=== PATIENT | male | born 1935 | race Caucasian/White ===

== ENCOUNTER 2020-08-23 10:37 | Outpatient (REF) | payer MEDICARE, SELFPAY ==
[2020-08-23 13:52] LABS: MANUAL DIFF FLAG NO
[2020-08-23 13:59] LABS: Basophils Absolute Auto 0.1 X10*3/uL (0.0-0.2); Basophils Percent Auto 1.3 % (0-2); Eosinophils Absolute Auto 0.1 X10*3/uL (0.0-0.4); Eosinophils Percent Auto 1.2 % (0-4); Hematocrit 52.4 % (42-52); Hemoglobin 16.4 g/dl (14.0-18.0); Imm Gran Abs Auto 0.07 X10*3/uL (0.00-0.03); Imm Gran Pct Auto 0.9 % (0.0-0.4); Lymphocytes Absolute Auto 0.8 X10*3/uL (1.2-4.9); Lymphocytes Percent Auto 10.7 % (20-40); Mean Corpuscular HGB Conc 31.3 g/dl (31.0-36.0); Mean Corpuscular Hemoglobin 27.3 pg (27.0-33.0); Mean Corpuscular Volume 87.2 fL (80-98); Mean Platelet Volume 10.6 fL (9.4-12.4); Monocytes Absolute Auto 0.4 X10*3/uL (0.1-1.2); Neutrophils Absolute Auto 6.3 X10*3/uL (2.0-8.3); Neutrophils Percent Auto 80.9 % (45-73); Platelet Count 202 X10*3/uL (160-400); Red Blood Count 6.01 X10*6/uL (4.60-5.80); Red Cell Distribution Width 14.9 % (11.0-16.0); White Blood Count 7.8 X10*3/uL (4.8-10.8)
[2020-08-23 14:52] LABS: Alanine Aminotransferase 14 U/L (0-40); Albumin Level 4.3 g/dL (3.5-5.0); Alkaline Phosphatase 84 U/L (39-117); Anion Gap 14 (12-20); Aspartate Amino Transferase 10 U/L (5-37); Bilirubin Total 0.6 mg/dL (0.0-1.0); Blood Urea Nitrogen 15 mg/dL (9-16); Calcium 8.8 mg/dL (8.4-10.2); Carbon Dioxide 24 mmol/L (22-29); Chloride 109 mmol/L (96-108); Cholesterol 139 mg/dL; Estimated Glomerular Filt Rate 58; Glucose Fasting 101 mg/dL (60-99); HDL Cholesterol 34 mg/dL; LDL Cholesterol Calculated 74 mg/dl; Sodium 143 mmol/L (135-145); Total Protein 7.1 g/dL (6.5-8.0); Triglycerides 155 mg/dL
== END 2020-08-23 10:38 | disposition home or self-care (01) ==
LOC: HO.HMGCLDS 10:37
PROVIDERS: PCP Internal Medicine; Visit Provider Internal Medicine
DX: I10 Essential (primary) hypertension (principal); N40.0 Benign prostatic hyperplasia without lower urinary tract symptoms
CPT/HCPCS: 36415; 80053; 80061; 85025

== ENCOUNTER 2020-11-07 13:49 | Outpatient (REF) | payer MEDICARE, SELFPAY ==
[2020-11-07 17:41] LABS: Prostate Specific Antigen 10.32 ng/mL (<0.05-4.0)
== END 2020-11-07 13:50 | disposition home or self-care (01) ==
LOC: HO.HMGCLDS 13:49
PROVIDERS: PCP Internal Medicine; Visit Provider Urology
DX: R97.20 Elevated prostate specific antigen [PSA] (principal); Z12.5 Encounter for screening for malignant neoplasm of prostate
CPT/HCPCS: 36415; 84153

== ENCOUNTER 2021-05-03 13:10 | Outpatient (REF) | payer MEDICARE, SELFPAY ==
[2021-05-03 14:48] LABS: Prostate Specific Antigen 9.28 ng/mL (<0.05-4.0)
== END 2021-05-03 13:11 | disposition home or self-care (01) ==
LOC: HO.HMGCLDS 13:10
PROVIDERS: PCP Internal Medicine; Visit Provider Urology
DX: Z12.5 Encounter for screening for malignant neoplasm of prostate (principal); R97.20 Elevated prostate specific antigen [PSA]
CPT/HCPCS: 36415; 84153

== ENCOUNTER 2021-08-28 13:00 | Outpatient (REF) | payer MEDICARE, SELFPAY ==
[2021-08-28 13:54] LABS: MANUAL DIFF FLAG NO
[2021-08-28 13:56] LABS: Basophils Absolute Auto 0.1 X10*3/uL (0.0-0.2); Eosinophils Absolute Auto 0.1 X10*3/uL (0.0-0.4); Eosinophils Percent Auto 1.4 % (0-4); Hematocrit 49.9 % (42.0-52.0); Hemoglobin 15.7 g/dl (14.0-18.0); Imm Gran Pct Auto 1.2 % (0.0-0.4); Lymphocytes Absolute Auto 0.9 X10*3/uL (1.2-4.9); Mean Corpuscular HGB Conc 31.5 g/dl (31.0-36.0); Mean Corpuscular Hemoglobin 27.4 pg (27.0-33.0); Mean Corpuscular Volume 86.9 fL (80.0-98.0); Monocytes Absolute Auto 0.5 X10*3/uL (0.1-1.2); Monocytes Percent Auto 5.5 % (2-11); Neutrophils Absolute Auto 6.7 x10*3/uL (2.0-8.3); Neutrophils Percent Auto 79.9 % (45-73); Platelet Count 194 X10*3/uL (160-400); Red Blood Count 5.74 X10*6/uL (4.60-5.80); Red Cell Distribution Width 15.5 % (11.0-16.0); White Blood Count 8.4 X10*3/uL (4.8-10.8)
[2021-08-28 14:12] LABS: Alanine Aminotransferase 14 U/L (0-40); Albumin Level 4.1 g/dL (3.5-5.0); Alkaline Phosphatase 73 U/L (39-117); Anion Gap 11 (12-20); Aspartate Amino Transferase 12 U/L (5-37); Bilirubin Total 0.7 mg/dL (0.0-1.0); Blood Urea Nitrogen 14 mg/dL (9-16); Calcium 9.1 mg/dL (8.4-10.2); Carbon Dioxide 26 mmol/L (22-29); Chloride 108 mmol/L (96-108); Cholesterol 128 mg/dL; Estimated Glomerular Filt Rate 53; Glucose Random 104 mg/dL (60-115); Potassium 5.2 mmol/L (3.3-5.1); Sodium 140 mmol/L (135-145); Total Protein 7.1 g/dL (6.5-8.0)
== END 2021-08-28 13:01 | disposition home or self-care (01) ==
LOC: HO.HMGCLDS 13:00
PROVIDERS: PCP Internal Medicine; Visit Provider Internal Medicine
DX: N40.0 Benign prostatic hyperplasia without lower urinary tract symptoms (principal); I10 Essential (primary) hypertension; Z72.0 Tobacco use
CPT/HCPCS: 36415; 80053; 82465; 85025

== ENCOUNTER 2021-10-26 14:06 | Outpatient (REF) | payer MEDICARE, SELFPAY ==
--- NOTE | ~2021-10-26 | US_ITS ---
EXAMINATION: US EXTRACRANIAL CAROTID DUPLEX, BILATERAL CLINICAL INFORMATION: Left neck throbbing. COMPARISON: None TECHNIQUE: Real-time ultrasound and Doppler techniques (integrating B-mode 2-D vascular images, Doppler spectral analysis and color-flow Doppler imaging) were utilized to interrogate the extracranial carotid arteries, the vertebral arteries and proximal subclavian arteries bilaterally. The degree of stenosis is determined by criteria similar to NASCET. FINDINGS: RIGHT SIDE: 1. There is soft atherosclerotic plaque seen in the bifurcation/proximal ICA region. 2. The common carotid artery PSV proximally is 145 cm/s and distally 118 cm/s. 3. The proximal internal carotid artery velocities are 150 cm/s systolic and 11.8 cm/s diastolic. 4. The proximal external carotid artery PSV is 177 cm/s. 5. The vertebral artery shows antegrade flow. 6. The subclavian artery waveforms are normal. LEFT SIDE: 1. There is soft atherosclerotic plaque seen in the bifurcation/proximal ICA region. 2. The common carotid artery PSV proximally is 136 cm/s and distally 119 cm/s. 3. The proximal internal carotid artery velocities are 104 cm/s systolic and 15.7 cm/s diastolic. 4. The proximal external carotid artery PSV is 136 cm/s. 5. The vertebral artery shows 63.3 flow. 6. The subclavian artery waveforms are normal. US/US carotid duplex BI IMPRESSION: 1. Right: 50-79% range stenosis. 2. Left: 0-49% range stenosis. 3. Normal antegrade flow seen in both vertebral arteries.
== END 2021-10-26 14:07 | disposition home or self-care (01) ==
LOC: HO.HMGCX 14:06
PROVIDERS: Visit Provider Internal Medicine
DX: R22.1 Localized swelling, mass and lump, neck (principal)
CPT/HCPCS: 93880

== ENCOUNTER → 2021-12-21 11:08 | Outpatient (BNVA) | payer MEDICARE, SELFPAY | PROVIDERS: PCP Internal Medicine; Visit Provider Surgery Vascular Surgery | DX: I65.23 Occlusion and stenosis of bilateral carotid arteries (principal) | CPT/HCPCS: 99202 ==

== ENCOUNTER 2022-01-24 08:01 | Outpatient (REF) | payer MEDICARE, SELFPAY ==
--- NOTE | ~2022-01-24 | XR_ITS ---
EXAMINATION: XR FOOT, RIGHT CLINICAL INFORMATION: Right foot pain. Rule out heel spur. COMPARISON: None TECHNIQUE: AP, lateral, and oblique views of the right foot. FINDINGS: Bone alignment is normal. No fracture or dislocation is seen. Joint spaces are normal. There is a small plantar calcaneal spur. There is mild soft tissue arterial calcification. XR/XR foot RT min 3V IMPRESSION: Small plantar calcaneal spur.
== END 2022-01-24 08:02 | disposition home or self-care (01) ==
LOC: HO.HMGCX 08:01
PROVIDERS: PCP Internal Medicine; Visit Provider Internal Medicine
DX: M79.671 Pain in right foot (principal)
CPT/HCPCS: 73630

== ENCOUNTER 2022-02-16 09:00 | Outpatient (RCR) | payer MEDICARE, SELFPAY ==
--- NOTE | 2022-01-17 09:54 | MHC.PT.EP ---
[facility] [place] Office [place] Office [place] Office [address] [phone] F: [phone] F: [phone] F: [phone] F: [phone] Physical Therapy Plan of Care Date of Evaluation: Date of Surgery: none Diagnosis: low back pain Assessment: Patient is a 86 year old R handed male who presents with s/s consistent with low back pain. He does not work and is but stays busy around the house and yard. Patient past medical history includes HTN. Current impairments include pain, posture, ROM, strength, activity tolerance and functional mobility. Functional limitations include decreased ability to walk, transfer, lift, carry, push and pull. Patient is motivated with good rehab potential. Skilled PT will address impairments and functional limitations in order to achieve goals. Frequency and Duration: The patient will be seen 2x/week for 4 weeks Short Term Goals: I with HEP - 2weeks HS 90/90 lacking 25 or less - 2 weeks Property Controller Goals: Able to walk 20 minutes without increased pain - 4 weeks Reduced morning pain to 2/10 max - 4 weeks rotation to 75% b/l - 4 weeks Treatment Plan: Modalities to reduce pain, spasms and effusion. Manual therapy to restore motion and function. Therapeutic exercise to improve strength and flexibility. Neuromuscular re-education for posture and balance. Therapeutic activities to return to functional activities of daily living. Electronically signed by: Jw Betancourt PT Please sign and return to therapist. Thank you for your referral.
== END 2022-04-25 10:46 | disposition home or self-care (01) ==
LOC: HO.PTCHIC 09:00
PROVIDERS: PCP Internal Medicine; Visit Provider Internal Medicine
DX: M54.50 Low back pain, unspecified (principal)
CPT/HCPCS: 97110; 97162

== ENCOUNTER 2022-02-16 09:54 | Outpatient (REF) | payer MEDICARE, SELFPAY | END 2022-02-16 09:55 | disposition home or self-care (01) | LOC: HO.HMGCLDS 09:54 | PROVIDERS: PCP Internal Medicine; Visit Provider Physician Assistant | DX: Z12.5 Encounter for screening for malignant neoplasm of prostate (principal); R97.20 Elevated prostate specific antigen [PSA] | CPT/HCPCS: 36415; 84153 ==

== ENCOUNTER 2022-05-24 11:55 | Outpatient (REF) | payer MEDICARE, SELFPAY ==
[2022-05-24 12:50] LABS: Influenza A PCR POSITIVE (Negative); Influenza B PCR NEGATIVE (Negative); Resp Syncy Virus RNA Qual PCR NEGATIVE (Negative); SARS COV2 PCR INHOUSE NEGATIVE (Negative)
== END 2022-05-24 11:56 | disposition home or self-care (01) ==
LOC: HO.LNP 11:55
PROVIDERS: Visit Provider Internal Medicine
DX: Z20.822 Contact with and (suspected) exposure to COVID-19 (principal); R05.9 Cough, unspecified; R50.9 Fever, unspecified
CPT/HCPCS: 0241U

== ENCOUNTER 2022-08-03 09:37 | Outpatient (REF) | payer MEDICARE, SELFPAY ==
[2022-08-03 11:43] LABS: MANUAL DIFF FLAG NO
[2022-08-03 12:01] LABS: Basophils Absolute Auto 0.2 X10*3/uL (0.0-0.2); Basophils Percent Auto 1.7 % (0-2); Eosinophils Absolute Auto 0.2 X10*3/uL (0.0-0.4); Eosinophils Percent Auto 1.8 % (0-4); Hematocrit 49.3 % (42.0-52.0); Hemoglobin 15.6 g/dl (14.0-18.0); Imm Gran Abs Auto 0.14 X10*3/uL (0.00-0.03); Imm Gran Pct Auto 1.6 % (0.0-0.4); Lymphocytes Absolute Auto 0.8 X10*3/uL (1.2-4.9); Lymphocytes Percent Auto 9.4 % (20-40); Mean Corpuscular HGB Conc 31.6 g/dl (31.0-36.0); Mean Corpuscular Hemoglobin 27.2 pg (27.0-33.0); Mean Corpuscular Volume 85.9 fL (80.0-98.0); Mean Platelet Volume 10.3 fL (9.4-12.4); Monocytes Absolute Auto 0.4 X10*3/uL (0.1-1.2); Monocytes Percent Auto 4.4 % (2-11); Neutrophils Absolute Auto 7.2 x10*3/uL (2.0-8.3); Neutrophils Percent Auto 81.1 % (45-73); Platelet Count 241 X10*3/uL (160-400); Red Blood Count 5.74 X10*6/uL (4.60-5.80); Red Cell Distribution Width 16.1 % (11.0-16.0); White Blood Count 8.8 X10*3/uL (4.8-10.8)
[2022-08-03 12:32] LABS: Alanine Aminotransferase 12 U/L (0-40); Albumin Level 3.9 g/dL (3.5-5.0); Alkaline Phosphatase 69 U/L (39-117); Anion Gap 13 (12-20); Aspartate Amino Transferase 12 U/L (5-37); Blood Urea Nitrogen 20 mg/dL (9-16); Calcium 8.9 mg/dL (8.4-10.2); Carbon Dioxide 24 mmol/L (22-29); Chloride 109 mmol/L (96-108); Cholesterol 129 mg/dL; Estimated Glomerular Filt Rate 59; Glucose Fasting 112 mg/dL (60-99); HDL Cholesterol 29 mg/dL; LDL Cholesterol Calculated 70 mg/dl; Potassium 4.3 mmol/L (3.3-5.1); Sodium 142 mmol/L (135-145); Total Protein 6.5 g/dL (6.5-8.0); Triglycerides 151 mg/dL
== END 2022-08-03 09:38 | disposition home or self-care (01) ==
LOC: HO.HMGCLDS 09:37
PROVIDERS: PCP Internal Medicine; Visit Provider Internal Medicine
DX: Z00.00 Encounter for general adult medical examination without abnormal findings (principal); Z12.5 Encounter for screening for malignant neoplasm of prostate
CPT/HCPCS: 36415; 80053; 80061; 84153; 85025

== ENCOUNTER → 2022-10-02 11:05 | Outpatient (BNVA) | payer MEDICARE, SELFPAY | PROVIDERS: PCP Internal Medicine; Visit Provider Surgery | DX: K40.90 Unilateral inguinal hernia, without obstruction or gangrene, not specified as recurrent (principal) | CPT/HCPCS: 99202 ==

== ENCOUNTER 2022-10-24 07:23 | Day surgery (SDC) | payer MEDICARE, SELFPAY ==
[2022-10-19 14:38] VITALS: BMI 24.6
[2022-10-24] VITALS (7 sets, daily range): BP systolic 125–167; BP diastolic 65–90; PULSE 74–92; RESP 16–20; TEMP 36.2–36.4; O2SAT 93–100; BMI 24.3
--- NOTE | 2022-10-24 08:25 | MHC.SHP ---
Pre-Procedural Eval Section A Date of Service: 10/24/22 The patient is an INPATIENT: No Changes since office visit: Yes Patient answered all questions; No Cold of Flu in the past 2 weeks, No New Medical Problems and No Changes in Medication The History & Physical has been completed within 30 days and I have reviewed it.: Yes Section B Chief Complaint: Unilateral inguinal hernia, without obstruction Allergies: Allergies Allergy/AdvReac Type Severity Reaction Status Date / Time No Known Allergies Allergy Verified 10/24/22 07:52 Plan Diagnosis/Plan: Unchanged I have reviewed the history and physical and performed a pertinent physical examination on my patient. No changes have occurred unless specified. Time Spent With Patient Time: Total time managing care of this patient today ____ minutes.
[2022-10-24] MEDS: Lactated Ringers 1,000 ML 100 ML IVCONT (08:33)
--- NOTE | 2022-10-24 08:40 | P.CONAN_ITS ---
Documented by User: Cristiane Cummings NP 10/23/22 10:46 HPI - Anesthesia Eval Consult details Narrative: 87yo M for Left Hernia Repair Inguinal with mesh Follows vascular for carotid stenosis. Last seen 12/2021 with f/u in 1 year. [facility] Active Problems Active Problems: All Active Problems (Updated 10/19/22 @ 14:40 by Luisa Costello RN) Bilateral carotid artery stenosis (Acute) Reducible left inguinal hernia (Acute) Past Medical History Medical History Bilateral carotid artery stenosis COPD (chronic obstructive pulmonary disease) Hypertension Family History Family History Sister Ovarian cancer Surgical History Surgical History H/O colonoscopy History of cataract surgery Hx of prostate biopsy Social History Social History Alcohol intake: never Patient Tobacco Use Status: Former Tobacco user Quit Date: 2002 Tobacco use type: Cigarette Smoked in Last 30 Days: No Use of substances other than those prescribed or required for medical reasons: No Are you DNR?: No Advance Directives: No Advance Directives Information Provided: Yes Meds Allergies Allergy/AdvReac Type Severity Reaction Status Date / Time No Known Allergies Allergy Verified 10/24/22 07:52 Home Medications Medication Instructions Recorded Confirmed Last Taken Type cholecalciferol (vitamin D3) 250 250 mcg PO DAILY 12/21/21 10/24/22 Unknown History mcg (10,000 unit) capsule lisinopril 5 mg tablet 5 mg PO DAILY 12/21/21 10/24/22 10/23/22 History aspirin 1 tab PO USEASDIRECTD 10/24/22 10/24/22 10/22/22 History budesonide-formoterol HFA 80 inhalation 10/24/22 Unknown History mcg-4.5 mcg/actuation aerosol inhaler (Symbicort) Exam Exam Date and Time: October 23, 2022 1036 Height,Weight and Vital Signs: Height 5 ft 8 in Weight 73.482 kg Pertinent Lab Results Pertinent Lab Results: Laboratory Tests 08/03/22 08/03/22 09:43 09:43 WBC 8.8 Hgb 15.6 Hct 49.3 Plt Count 241 Sodium 142 Potassium 4.3 Chloride 109 H Carbon Dioxide 24 BUN 20 H Creatinine 1.18 Narrative Narrative: US carotid duplex BI 2021 IMPRESSION: 1. Right: 50-79% range stenosis. ? 2. Left: 0-49% range stenosis. ? 3. Normal antegrade flow seen in both vertebral arteries. Assessment and Plan Assessment Anesthesia Assessment: Chart Reviewed Documented by User: Nancy Cintron DO 10/24/22 08:43 [facility] Past Medical History Medical History Bilateral carotid artery stenosis COPD (chronic obstructive pulmonary disease) Hypertension Family History Family History Sister Ovarian cancer Family history of problems with anesthesia: No Surgical History Surgical History H/O colonoscopy History of cataract surgery Hx of prostate biopsy History of Problems with Anesthesia: No Social History Social History Alcohol intake: never Patient Tobacco Use Status: Former Tobacco user Quit Date: 2002 Tobacco use type: Cigarette Smoked in Last 30 Days: No Use of substances other than those prescribed or required for medical reasons: No Are you DNR?: No Advance Directives: No Advance Directives Information Provided: Yes Meds Allergies Allergy/AdvReac Type Severity Reaction Status Date / Time No Known Allergies Allergy Verified 10/24/22 07:52 Home Medications Medication Instructions Recorded Confirmed Last Taken Type cholecalciferol (vitamin D3) 250 250 mcg PO DAILY 12/21/21 10/24/22 Unknown History mcg (10,000 unit) capsule lisinopril 5 mg tablet 5 mg PO DAILY 12/21/21 10/24/22 10/23/22 History aspirin 1 tab PO USEASDIRECTD 10/24/22 10/24/22 10/22/22 History budesonide-formoterol HFA 80 inhalation 10/24/22 Unknown History mcg-4.5 mcg/actuation aerosol inhaler (Symbicort) Exam Exam Date and Time: October 24, 2022 0840 Height,Weight and Vital Signs: Height 5 ft 8 in Weight 73.482 kg Vital Signs Temperature 97.1 F 10/24/22 07:35 Pulse Rate 74 10/24/22 07:35 Respiratory Rate 16 10/24/22 07:35 Blood Pressure 167/90 H 10/24/22 07:35 Pulse Oximetry 99 10/24/22 07:35 Oxygen Delivery Method Room Air 10/24/22 07:35 Temperature 97.1 F 10/24/22 07:35 Pulse Rate 74 10/24/22 07:35 Respiratory Rate 16 10/24/22 07:35 Blood Pressure 167/90 H 10/24/22 07:35 Pulse Oximetry 99 10/24/22 07:35 Oxygen Delivery Method Room Air 10/24/22 07:35 Airway Mallampati Class: I TM Dist: >3cm Neck ROM: Full Loose/Missing/Broken Teeth: No (patient denies any loose or chipped teeth) Heart: S1S2 Lungs: CTAB Assessment and Plan Assessment Anesthesia Assessment: Anesthesia Plan Discussed Final Anesthetic Review Family History of Problems with Anesthesia: No History of Problems with Anesthesia: No NPO: Yes ASA Class: II Final Preanesthetic Review: No Changes in Pt Med Stat, Meds/Allgs Chart Reviewed, Consent Obtained/Reviewed and Anes Risks/Benef Reviewed Patient Risk: Low Procedure Risk: Low Anesthetic Plan Anesthetic Plan: GA Disposition: Standard PACU
--- NOTE | 2022-10-24 09:00 | W.PM.OPN ---
Operative Note Operative Note Date of Service: 10/24/22 Narrative: Preoperative diagnosis: Left inguinal hernia Postoperative diagnosis: same Procedure: repair of left inguinal hernia with mesh Surgeon: Jae Mota MD Transformer Repairer: none Anesthesia: general LMA Indications for procedure: 87-year-old male patient presenting with a large left inguinal hernia which reduces with light pressure. The hernias been present for many years and is associated with increased size and pain. He also reports some constipation. Operative findings: Large indirect left inguinal hernia containing sigmoid colon without evidence of strangulation. The hernia was incarcerated however. Specimen: Hernia sac left side Estimated blood loss: 2 mL Complications: none Procedure details: patient was brought to the OR and placed in a supine position. After administering general anesthesia the patient's abdomen was prepped with ChloraPrep and draped in a sterile fashion. A surgical time-out was called and consent confirmed. Patient received preoperative antibiotics and Venodyne boots were in place. Local anesthesia consisting of 0.5% Sensorcaine with epinephrine was infiltrated over the of left inguinal ligament. Incision was then made with a scalpel carried out through subcutaneous tissue, past Soo's fascia, up to the external oblique aponeurosis. Additional local was then infiltrated below the external oblique aponeurosis. This was then incised with the scalpel wide with the Metzenbaum scissors. The spermatic cord was dissected free from the surrounding canal and retracted using a Rudolph drain. Large indirect left inguinal hernia was identified containing incarcerated bowel. The spermatic cord was dissected and these fibers of the cremasteric muscle . Peritoneum was then entered and bowel identified. This was sent freed from the surrounding peritoneal cavity sac using Metzenbaum scissors and return to the abdominal cavity. The sac was then dissected and the spermatic vessels and vas deferens from the sac. The sac was then divided. The distal segment was dissected free and sent as a specimen. The proximal segment was then dissected free towards the internal ring. A pursestring suture of 0 Polysorb suture was then placed at the base of the sac the sac tied off. The sac was then divided above the suture and return to the abdominal cavity. Fibers of the internal oblique aponeurosis and transversalis aponeurosis were then divided medially in the floor of the inguinal canal. Preperitoneal space was entered and widened with a an open Ray-Deacon sponge. A large extended PHS mesh was then obtained. The circular underlay was deployed within the preperitoneal space. The overlay was then secured with tubercle, conjoined tendon, and shelving edge of the inguinal ligament using a 0 Polysorb suture peer a slit was made in the mesh in the mesh wrapped around the spermatic cord at the internal ring. This was then secured to the shelving edge using a 0 Polysorb suture. The wrap was tight enough to allow passage of the tip of the next finger. The wounds were then irrigated with saline solution and suctioned dry. External oblique aponeurosis was then closed using a running 2 0 Polysorb suture. 7 mL of Zenrelef was then infiltrated below the external oblique aponeurosis. Soo's fascia and dermis were then reapproximated using interrupted 3-0 Polysorb sutures. Skin was closed using a running subcuticular 4-0 Polysorb suture. Steri-Strips, 2 x 2 gauze and Tegaderm were then applied. The patient tolerated the procedure well. Sponge, instrument, and needle counts reported as correct. The patient was transferred to PACU in stable condition.
== END 2022-10-24 11:55 | disposition home or self-care (01) ==
PROVIDERS: PCP Internal Medicine; Visit Provider Surgery
PROC: (CPT 49507; principal; 2022-10-24 09:10)
DX: K40.30 Unilateral inguinal hernia, with obstruction, without gangrene, not specified as recurrent (principal); I10 Essential (primary) hypertension; Z79.899 Other long term (current) drug therapy; Z87.891 Personal history of nicotine dependence
CPT/HCPCS: 49507; 88302; C1781; C9088; J0690; J2370; J2405; J3010

== ENCOUNTER → 2022-11-01 09:29 | Outpatient (BNVA) | payer MEDICARE, SELFPAY | PROVIDERS: PCP Internal Medicine; Visit Provider Surgery | DX: Z48.815 Encounter for surgical aftercare following surgery on the digestive system (principal); Z87.19 Personal history of other diseases of the digestive system | CPT/HCPCS: 99212 ==

== ENCOUNTER 2022-11-03 13:39 | Emergency (ER) | payer MEDICARE, SELFPAY ==
--- NOTE | 2022-11-03 13:55 | ED.GENADULT ---
HPI - General Adult General Chief complaint: Wound/Laceration Stated complaint: bleeding from inceision on 10/24/22 Time Seen by Provider: 11/03/22 14:04 Source: patient, family (daughter), RN notes reviewed and old records reviewed Mode of arrival: ambulatory Limitations: no limitations History of Present Illness HPI narrative: Patient is an 87-year-old male with bilateral carotid artery stenosis and left inguinal hernia repair on 10/24 presenting after he noted bleeding from his surgical site earlier today. Patient states that he went to urinate and noted blood in the toilet, then realized the bleeding was from his surgical incision. Patient's daughter stated that she contacted the surgeon's office and was told to apply a dressing and bring patient to the ED for evaluation. Patient states he was told not to do any lifting and states he has not. He also denies any straining with bowel movements. He denies any difficulty urinating or hematuria. He denies any back or flank pain. He denies any dizziness, lightheadedness, chest pain, shortness of breath, dyspnea on exertion. He denies any abdominal pain. MD complaint: bleeding from surgical incision Onset (ago): hour(s) Location: abdomen Treatments prior to arrival: other (dressing) Related Data Home Medications Medication Instructions Recorded Confirmed cholecalciferol (vitamin D3) 250 250 mcg PO DAILY 12/21/21 10/24/22 mcg (10,000 unit) capsule lisinopril 5 mg tablet 5 mg PO DAILY 12/21/21 10/24/22 aspirin 1 tab PO USEASDIRECTD 10/24/22 10/24/22 budesonide-formoterol HFA 80 inhalation 10/24/22 mcg-4.5 mcg/actuation aerosol inhaler (Symbicort) Allergies Allergy/AdvReac Type Severity Reaction Status Date / Time No Known Allergies Allergy Verified 11/03/22 13:56 Review of Systems Review of Systems: As per HPI Yes all other systems are reviewed and are negative Constitutional: Constitutional: Reports no additional constitutional complaints Eyes: Eyes: Reports no additional eye complaints ENT: Reports system reviewed and no additional complaints, except as documented Cardiovascular: Cardiovascular: Reports no additional cardiovascular complaints Respiratory: Respiratory: Reports no additional respiratory complaints Gastrointestinal: Gastrointestinal: Reports no additional gastrointestinal complaints Genitourinary: Genitourinary: Reports no additional male genitourinary complaints Musculoskeletal: Musculoskeletal: Reports no additional musculoskeletal complaints Integumentary/Breasts: Skin/Breast: Reports system reviewed and no additional complaints, except as docu Neurologic: Reports system reviewed and no additional complaints, except as documented Psychiatric: Psychiatric: Reports no additional psychiatric complaints Endocrine: Endocrine: Reports no additional endocrine complaints Hematologic/Lymphatic: Hematologic/Lymphatic: Reports no additional hematologic/lymphatic complaints Allergic/Immunologic: Allergic/Immunologic: Reports no additional allergic/immunologic complaints [facility] Past Medical History Medical History (Updated 11/03/22 @ 15:51 by Cyndy Rodríguez NP) Bilateral carotid artery stenosis COPD (chronic obstructive pulmonary disease) Hematoma Hypertension Surgical History (Updated 11/03/22 @ 15:51 by Cyndy Rodríguez NP) H/O colonoscopy H/O left inguinal hernia repair (10/24/22) History of cataract surgery Hx of prostate biopsy Status post left inguinal hernia repair Family History Family History Sister Ovarian cancer Social History Social History Alcohol intake: never Patient Tobacco Use Status: Former Tobacco user Quit Date: 2002 Tobacco use type: Cigarette Advance Directives: Yes Advance Directives Information Provided: No Advance Directives on File: No Physical Exam ED Vital Signs: Vital Signs - 24 hr 11/03/22 13:56 Temperature 97.9 F Pulse Rate 74 Respiratory Rate 18 Blood Pressure 150/63 H Pulse Oximetry 98 Oxygen Delivery Method Room Air BMI result Body Mass Index 24.2 VS have been reviewed and appear to be correct. Blood pressure normal. Heart rate normal. Respiratory rate normal. Temperature normal. Oxygen saturation normal. Vital signs have been reviewed and appear to be correct. Blood pressure mildly elevated. Heart rate normal. Respiratory rate normal. Temperature normal. Oxygen saturation normal. Const General: no acute distress, alert and awake Orientation/consciousness: patient oriented x3 HENMT Head: Yes normocephalic and Yes atraumatic Mouth: oropharynx normal and moist mucous membranes Throat: Yes uvula midline Eyes Pupils: Equal, round and reactive pupils present EOM: EOMs intact bilaterally Neck Neck: Yes normal visual inspection, Yes full ROM, Yes no lymphadenopathy, Yes no meningeal signs and Yes supple Resp Effort & Inspection: normal respiratory effort Auscultation: clear to auscultation bilaterally Cardio Rate: regular rate Rhythm: regular rhythm Heart sounds: S1 normal heart sound present and S2 normal heart sound present Peripheral pulses: Peripheral pulses 2+ throughout GI Other: Significant hematoma/ecchymosis to left inguinal incision extending medially and inferiorly. Surgical incision and steri-strips intact. No active bleeding. See attached photo. Other: Chaperoned by: General: Yes no CVA tenderness Back/Spine/Pelvis Back: no CVA tenderness Skin General skin exam: elasticity normal and turgor normal Rashes: no rashes Neuro General: patient oriented x3, gait normal and no meningeal signs Cranial nerves: Yes Equal, round and reactive pupils present Motor exam (neuro): 5/5 motor strength present throughout and Normal motor muscle tone present throughout Sensory Exam: Normal double simultaneous stimulation for sensation Course Course Course Narrative: RME performed by Lori Giles PA-C. Patient is an 87 year old assigned male at presenting to the emergency department with bleeding from his hernia incision. Patient placed back in the waiting room pending room availability and results. 14:[address] [place] [address] Lerma regarding patient's hematoma. Will obtain CBC, BMP. 15:[address] Lerma, patient does not require CT abdomen/pelvis unless he has a significant drop in his H&H. Can apply warm compresses several times daily. Twice daily dressing changes and assessments. Follow up with Dr. Mota in the office on Saturday for re-evaluation. 15:[address] Lerma of results of H&H, feels patient does not need CT, is stable for discharge home. Patient and daughter updated on all results, all questions answered and patient and daughter are agreeable with plan of care. Return precautions discussed at bedside. Medical Decision Making Medical Decision Making MDM Narrative: Patient is an 87-year-old male with bilateral carotid artery stenosis and left inguinal hernia repair on 10/24 presenting after he noted bleeding from his surgical site earlier today. On exam patient is nontoxic appearing, awake, A+Ox3, mildly elevated BP but otherwise VS WNL, firm ecchymosis to left inguinal area extending medially and inferiorly. Concern for ongoing bleeding versus stable hematoma. Unlikely post-op infection. Will contact on-call surgeon, obtain basic labs, and reassess. Please refer to course for remaining clinical decision making. Differential Diagnosis Differential Diagnoses: The differential diagnosis associated with the presentation includes As above Admission/Observation Consideration of admission/observation: Escalation of care including admission/observation considered Consult Healthcare Provider Management of the patient was discussed with: School Bus Driver/Teacher Assistant (Dr. Lerma-general surgery) Lab Data MDM Lab Attestation statement: I reviewed the patient's lab results. 11/03/22 14:36 11/03/22 14:36 Labs: Lab Results 11/03/22 11/03/22 Range/Units 14:36 14:36 WBC 10.6 (4.8-10.8) X10*3/uL RBC 4.60 (4.60-5.80) X10*6/uL Hgb 12.4 L D (14.0-18.0) g/dl Hct 38.3 L D (42.0-52.0) % MCV 83.3 (80.0-98.0) fL MCH 27.0 (27.0-33.0) pg MCHC 32.4 (31.0-36.0) g/dl RDW 15.1 (11.0-16.0) % Plt Count TNP MPV 11.5 (9.4-12.4) fL Immature Gran % (Auto) 3.0 H (0.0-0.4) % Neut % (Auto) 83.9 H (45-73) % Lymph % (Auto) 7.2 L (20-40) % Carroll % (Auto) 4.2 (2-11) % Eos % (Auto) 1.0 (0-4) % Baso % (Auto) 0.7 (0-2) % Lymph # (Auto) 0.8 L (1.2-4.9) X10*3/uL Carroll # (Auto) 0.5 (0.1-1.2) X10*3/uL Eos # (Auto) 0.1 (0.0-0.4) X10*3/uL Baso # (Auto) 0.1 (0.0-0.2) X10*3/uL Abs Immat Gran (auto) 0.32 H (0.00-0.03) X10*3/uL Absolute Neuts (auto) 8.9 H (2.0-8.3) x10*3/uL Absolute Nucleated RBC 0.000 (0.0-0.012) X10*3/uL Nucleated RBC % (auto) 0.0 (0.0-0.2) /100WBC Smear Tech's Comments VERIFIED Sodium 139 (135-145) mmol/L Potassium 4.4 (3.3-5.1) mmol/L Chloride 108 (96-108) mmol/L Carbon Dioxide 23 (22-29) mmol/L Anion Gap 12 (12-20) BUN 17 H (9-16) mg/dL Creatinine 1.46 H (0.5-1.4) mg/dL Estim Creat Clear Calc 35.1 Estimated GFR 46 Random Glucose 96 (60-115) mg/dL Calcium 8.5 (8.4-10.2) mg/dL Independent Historian Clinical information obtained from an independent historian. History obtained from or confirmed by: Other (daughter) External Record Review External record reviewed: Inpatient record, Office record and Outpatient record Discharge Plan Discharge Clinical Impression: Status post left inguinal hernia repair, Hematoma Patient Disposition: Home, Self-Care Instructions: Hematoma (ED) Additional Instructions: You were evaluated in the emergency department for bleeding from your surgical incision. You were evaluated in the emergency department by Dr. Lerma from surgery who feels you are safe to discharge home. He wants you to follow up in the office with Dr. Mota on 11/06/22 for re-evaluation. Please change your dressing twice daily and assess for any further bleeding or signs of infection. You should apply warm compresses to the area for 10-15 minutes at a time several times daily. Return to the emergency department if your dressings become saturated with blood, or if you have bleeding that is unable to be stopped, or if you develop dizziness, weakness, lightheadedness, chest pain, shortness of breath, or any other concerning symptoms. Prescriptions: No Action budesonide-formoterol [Symbicort] 80-4.5 mcg/actuation HFA aerosol inhaler INHALATION aspirin 81 MG 1 tab PO USEASDIRECTD lisinopril 5 mg tablet 5 mg PO DAILY cholecalciferol (vitamin D3) 250 mcg (10,000 unit) capsule 250 mcg PO DAILY
[2022-11-03 13:56] VITALS: BP 150/63; PULSE 74; RESP 18; TEMP 36.6; O2SAT 98; BMI 24.2
--- NOTE | 2022-11-03 14:05 | PC.NURSE ---
pt ambulatory to exam room with daughter at bedside. pt changed into hospital attire- awaiting provider call lucy bermeo
[2022-11-03 14:42] LABS: Basophils Percent Auto 0.7 % (0-2); Eosinophils Absolute Auto 0.1 X10*3/uL (0.0-0.4); Hemoglobin 12.4 g/dl (14.0-18.0); PLT CLUMP 1; Red Cell Distribution Width 15.1 % (11.0-16.0); SCAN SMEAR FLAG 1
[2022-11-03 14:43] LABS: Basophils Absolute Auto 0.1 X10*3/uL (0.0-0.2); Hematocrit 38.3 % (42.0-52.0); Imm Gran Abs Auto 0.32 X10*3/uL (0.00-0.03); Lymphocytes Absolute Auto 0.8 X10*3/uL (1.2-4.9); Lymphocytes Percent Auto 7.2 % (20-40); MANUAL DIFF FLAG SCAN; Mean Corpuscular HGB Conc 32.4 g/dl (31.0-36.0); Mean Corpuscular Volume 83.3 fL (80.0-98.0); Mean Platelet Volume 11.5 fL (9.4-12.4); Monocytes Absolute Auto 0.5 X10*3/uL (0.1-1.2); Monocytes Percent Auto 4.2 % (2-11); Neutrophils Absolute Auto 8.9 x10*3/uL (2.0-8.3); Neutrophils Percent Auto 83.9 % (45-73)
[2022-11-03 15:05] LABS: White Blood Count 10.6 X10*3/uL (4.8-10.8)
--- NOTE | 2022-11-03 15:08 | PM.CNGS ---
History of Present Illness Consult details Consult date: 11/03/22 Narrative: 87-year-old male here in the ER because of blood through his incision. He had undergone repair of a left inguinal hernia with mesh with Dr. Mota last 10/24/2022. He tolerated the procedure well. He was seen by Dr. Mota on a follow-up visit 2 days ago in the office and was noted to have a hematoma. This morning, patient noted some dark thick blood coming through his incisions. His daughter was concerned so I told him to come to the emergency room to be checked. He denies denies pain. He says he only takes ibuprofen. He says he has been otherwise feeling well at home. He has been ambulating without problems. Review of Systems Constitutional: Constitutional: Denies chills and Denies fever(s) Cardiovascular: Cardiovascular: Denies chest pain, Denies dyspnea and Denies dyspnea on exertion Respiratory: Respiratory: Denies dyspnea and Denies dyspnea on exertion Gastrointestinal: Gastrointestinal: Denies abdominal pain Genitourinary: Genitourinary: Denies difficulty urinating PMFSH Past Medical History Medical History Bilateral carotid artery stenosis COPD (chronic obstructive pulmonary disease) Hematoma Hypertension Family History Family History Sister Ovarian cancer Surgical History Surgical History H/O colonoscopy H/O left inguinal hernia repair (10/24/22) History of cataract surgery Hx of prostate biopsy Status post left inguinal hernia repair Social History Social History Alcohol intake: never Patient Tobacco Use Status: Former Tobacco user Quit Date: 2002 Tobacco use type: Cigarette Meds Allergies Allergy/AdvReac Type Severity Reaction Status Date / Time No Known Allergies Allergy Verified 11/06/22 11:04 Home Medications Medication Instructions Recorded Confirmed Last Taken Type cholecalciferol (vitamin D3) 250 250 mcg PO DAILY 12/21/21 11/06/22 Unknown History mcg (10,000 unit) capsule lisinopril 5 mg tablet 5 mg PO DAILY 12/21/21 11/06/22 10/23/22 History aspirin 1 tab PO USEASDIRECTD 10/24/22 11/06/22 10/22/22 History budesonide-formoterol HFA 80 inhalation 10/24/22 11/06/22 Unknown History mcg-4.5 mcg/actuation aerosol inhaler (Symbicort) Physical Exam Vital Signs: Vital Signs: Last Vital Signs Temp 97.9 F 11/03/22 13:56 Pulse 74 11/03/22 13:56 Resp 18 11/03/22 13:56 BP 150/63 H 11/03/22 13:56 Pulse Ox 98 11/03/22 13:56 O2 Del Method Room Air 11/03/22 13:56 BMI result Body Mass Index 24.2 Const: General: comfortable and no acute distress Resp: Effort & Inspection: normal respiratory effort Cardio: Rate: regular rate GI: Other: Left inguinal hernia repair site with ecchymosis and hematoma, no active bleeding Palpation (GI): Soft to palpation, not firm, nontender and no guarding Abdomen image: 1. ecchymosis and hematoma Results Labs 11/03/22 14:36 11/03/22 14:36 Labs: Abnormal lab results 11/03/22 Range/Units 14:36 Hgb 12.4 L D (14.0-18.0) g/dl Hct 38.3 L D (42.0-52.0) % Immature Gran % (Auto) 3.0 H (0.0-0.4) % Neut % (Auto) 83.9 H (45-73) % Lymph % (Auto) 7.2 L (20-40) % Lymph # (Auto) 0.8 L (1.2-4.9) X10*3/uL Abs Immat Gran (auto) 0.32 H (0.00-0.03) X10*3/uL Absolute Neuts (auto) 8.9 H (2.0-8.3) x10*3/uL Short CBC 11/03/22 Range/Units 14:36 WBC 10.6 (4.8-10.8) X10*3/uL Hgb 12.4 L D (14.0-18.0) g/dl Hct 38.3 L D (42.0-52.0) % Plt Count Not Reportable All other labs normal. Assessment and Plan (1) Hematoma: Status: Acute He has hematoma on the left inguinal hernia repair site. The seems to drain through the incision periodically. He does not appear to be clinically anemic. There is no evidence of any active bleeding at this time. The incision is currently dry. I instructed him and his daughter on applying thick gauze as dressings. I have instructed him to do warm compresses to the area to allow quicker resorption of the hematoma. He actually appears comfortable and does not have significant pain at all. He is not on any blood thinners which may aggravate the hematoma. I did explain to him that it may be best for him to closely follow-up with Dr. Mota in the office. I explained to them that if a hematoma worsens, there may be a chance that this may need to be evacuated. We try to avoid that in view of the presence of mesh to keep the area sterile and unexposed. The understand and will schedule a follow-up with Dr. Mota early this coming week. The daughter is comfortable with the plan. (2) Status post left inguinal hernia repair: Status: Acute Time Spent With Patient Time: Total time managing care of this patient today ____ minutes. Procedures Date of Service Date of Service: 11/09/22
[2022-11-03 15:17] LABS: Anion Gap 12 (12-20); Blood Urea Nitrogen 17 mg/dL (9-16); Calcium 8.5 mg/dL (8.4-10.2); Carbon Dioxide 23 mmol/L (22-29); Chloride 108 mmol/L (96-108); Creatinine Clr Calc Pharmacy 35.1; Estimated Glomerular Filt Rate 46; Glucose Random 96 mg/dL (60-115); Potassium 4.4 mmol/L (3.3-5.1); Sodium 139 mmol/L (135-145)
[2022-11-03 15:20] LABS: SLIDE REVIEW VERIFIED
== END 2022-11-03 16:24 | disposition home or self-care (01) ==
PROVIDERS: Registered Nurse Emergency; Emergency Provider Emergency Medicine Emergency Medical Services; PCP Internal Medicine
DX: L76.32 Postprocedural hematoma of skin and subcutaneous tissue following other procedure (principal); Y83.8 Other surgical procedures as the cause of abnormal reaction of the patient, or of later complication, without mention of misadventure at the time of the procedure; Y82.8 Other medical devices associated with adverse incidents; Y92.9 Unspecified place or not applicable; K40.90 Unilateral inguinal hernia, without obstruction or gangrene, not specified as recurrent; I10 Essential (primary) hypertension; Z79.899 Other long term (current) drug therapy
CPT/HCPCS: 36415; 80048; 85025; 99283; 99284

== ENCOUNTER → 2022-11-06 10:36 | Outpatient (BNVA) | payer MEDICARE, SELFPAY | PROVIDERS: PCP Internal Medicine; Visit Provider Surgery | DX: L76.32 Postprocedural hematoma of skin and subcutaneous tissue following other procedure (principal); Z87.19 Personal history of other diseases of the digestive system; Z98.890 Other specified postprocedural states | CPT/HCPCS: 99212 ==

== ENCOUNTER 2022-11-15 12:55 | Outpatient (REF) | payer MEDICARE, SELFPAY ==
[2022-11-15 14:52] LABS: Estimated Average Glucose 100 mg/dL; Hemoglobin A1c % 5.1 %
== END 2022-11-15 12:56 | disposition home or self-care (01) ==
LOC: HO.HMGCLDS 12:55
PROVIDERS: PCP Internal Medicine; Visit Provider Internal Medicine
DX: I10 Essential (primary) hypertension (principal); R73.03 Prediabetes
CPT/HCPCS: 36415; 80048; 83036

== ENCOUNTER 2022-11-16 11:51 | Outpatient (REF) | payer MEDICARE, SELFPAY ==
[2022-11-16 14:26] LABS: Anion Gap 12 (12-20); Blood Urea Nitrogen 16 mg/dL (9-16); Calcium 8.8 mg/dL (8.4-10.2); Carbon Dioxide 25 mmol/L (22-29); Chloride 107 mmol/L (96-108); Estimated Glomerular Filt Rate 51; Glucose Random 106 mg/dL (60-115); Potassium 4.5 mmol/L (3.3-5.1); Sodium 139 mmol/L (135-145)
== END 2022-11-16 11:52 | disposition home or self-care (01) ==
LOC: HO.HMGCLDS 11:51
PROVIDERS: PCP Internal Medicine; Visit Provider Internal Medicine
DX: I10 Essential (primary) hypertension (principal); R73.03 Prediabetes
CPT/HCPCS: 36415; 80048

== ENCOUNTER 2022-12-24 09:48 | Outpatient (REF) | payer MEDICARE, SELFPAY | END 2022-12-24 09:49 | disposition home or self-care (01) | LOC: HO.HMGCX 09:48 | PROVIDERS: PCP Internal Medicine; Visit Provider Surgery Vascular Surgery | DX: Z13.89 Encounter for screening for other disorder (principal) ==

== ENCOUNTER 2022-12-25 13:21 | Outpatient (AMB) | payer MEDICARE, SELFPAY ==
--- NOTE | 2022-12-25 13:28 | MHC.OFFVIS ---
Intake Vital Signs 12/25/22 13:35 Height 5 ft 8 in Weight 156 lb 8 oz BMI 23.8 BP 139/60 Blood Pressure Location Lt brachial Position Sitting Pulse 71 Intake Visit Reasons: 1 mth follow up LIH w/ mesh Intake Note: Patient is seen in office for one month follow up visit, post LIH repair. Pt c/o: once in a while get a bee sting in the area, denies any other concerns [employer] Experimental [employer] Required: No Accompanied by: Self / Same As Patient Allergies No Known Allergies Allergy (Verified 12/25/22 13:34) Medication List - Last Reconciled 12/25/22 by Jae Mota MD [aspirin 1 tab PO USEASDIRECTD] budesonide-formoterol 80-4.5 mcg/actuation (Symbicort) inhalation cholecalciferol (vitamin D3) 250 mcg PO DAILY ketoconazole 2% appl topical BID PRN lisinopril 5 mg PO DAILY HPI HPI Comments History of Present Illness Details 87-year-old male patient returning 1 month following repair of a left inguinal hernia with mesh. His postoperative course was complicated by a hematoma in the left groin. He feels much improved today but does still have some swelling in the left groin denies any bleeding or discharge. He occasionally will get a sharp pain in the left groin but it happens less and less frequently now. He is eating well and denies any nausea or vomiting. [facility]LY [facility], [facility] Medical History Bilateral carotid artery stenosis COPD (chronic obstructive pulmonary disease) Hematoma Hypertension Surgical History H/O colonoscopy H/O left inguinal hernia repair (10/24/22) History of cataract surgery Hx of prostate biopsy Status post left inguinal hernia repair Family History Sister Ovarian cancer Social History Alcohol intake: never Patient Tobacco Use Status: Former Tobacco user Quit Date: 2002 Tobacco use type: Cigarette Physical Exam Vital Signs: Last Vital Signs Pulse 71 12/25/22 13:35 BP 139/60 12/25/22 13:35 BMI result Body Mass Index 23.8 Const General: no acute distress and well developed Nutritional Appearance: well nourished Orientation/consciousness: patient oriented x3 Resp Effort & Inspection: normal respiratory effort GI Other: Soft, nondistended, well-healed incision in the left groin. No hernia noted with Valsalva maneuvers. No residual hematoma although there is residual swelling, much improved from prior examination. Skin Other: Warm, dry, no rash Neuro General: patient oriented x3 Extrem General: No edema Assessment & Plan Assessment & Plan (1) Status post left inguinal hernia repair: Code(s): Z98.890 - Other specified postprocedural states; Z87.19 - Personal history of other diseases of the digestive system Plan 87-year-old male patient returns 1 month following repair of a left inguinal hernia with mesh. His wounds are well healed with no evidence of recurrent hernia. He may resume normal activity without restrictions and should follow up as needed. Coding Level of Care Code Global (02645) Diagnoses Status post left inguinal hernia repair Z98.890; Z87.19
[2022-12-25 13:35] VITALS: BP 139/60; PULSE 71; BMI 23.8
== END 2022-12-25 13:46 | disposition home or self-care (01) ==
PROVIDERS: PCP Internal Medicine; Visit Provider Surgery
DX: Z98.890 Other specified postprocedural states (principal); Z87.19 Personal history of other diseases of the digestive system
CPT/HCPCS: 99024

== ENCOUNTER → 2022-12-25 13:21 | Outpatient (BNVA) | payer MEDICARE, SELFPAY | PROVIDERS: PCP Internal Medicine; Visit Provider Surgery ==

== ENCOUNTER 2022-12-25 13:55 | Outpatient (REF) | payer MEDICARE, SELFPAY ==
--- NOTE | ~2022-12-25 | US_ITS ---
EXAMINATION: US EXTRACRANIAL CAROTID DUPLEX, BILATERAL CLINICAL INFORMATION: Carotid stenosis. COMPARISON: 10/26/2021 TECHNIQUE: Real-time ultrasound and Doppler techniques (integrating B-mode 2-D vascular images, Doppler spectral analysis and color-flow Doppler imaging) were utilized to interrogate the extracranial carotid arteries, the vertebral arteries and proximal subclavian arteries bilaterally. The degree of stenosis is determined by criteria similar to NASCET. FINDINGS: Right Side: 1. There is minimal atherosclerotic plaque seen in the bifurcation/proximal ICA region. 2. The common carotid artery PSV proximally is 111 cm/s and distally 96 cm/s. 3. The proximal internal carotid artery velocities are 99 cm/s systolic and 16 cm/s diastolic. 4. The proximal external carotid artery PSV is 92 cm/s. 5. The vertebral artery shows antegrade flow. 6. The subclavian artery waveforms are normal. Left Side: 1. There is minimal atherosclerotic plaque seen in the bifurcation/proximal ICA region. 2. The common carotid artery PSV proximally is 89 cm/s and distally 100 cm/s. 3. The proximal internal carotid artery velocities are 84 cm/s systolic and 18 cm/s diastolic. 4. The proximal external carotid artery PSV is 72 cm/s. 5. The vertebral artery shows antegrade flow. 6. The subclavian artery waveforms are normal. US/US carotid duplex BI IMPRESSION: 1. RIGHT: Minimal, non-hemodynamically significant stenosis of the proximal right internal carotid artery corresponding to a 0-49% stenosis by velocity criteria. At the time of the prior study, disease category in the right was in the 50-79% diameter reduction range as velocity in the proximal ICA was elevated at 150/12 cm/s. 2. LEFT: Minimal, non-hemodynamically significant stenosis of the proximal left internal carotid artery corresponding to a 0-49% stenosis by velocity criteria. No significant interval change in disease category since the prior exam.
[2022-12-25 15:12] LABS: MANUAL DIFF FLAG NO
[2022-12-25 15:37] LABS: Basophils Absolute Auto 0.1 X10*3/uL (0.0-0.2); Basophils Percent Auto 1.2 % (0-2); Eosinophils Absolute Auto 0.1 X10*3/uL (0.0-0.4); Eosinophils Percent Auto 1.2 % (0-4); Hematocrit 45.8 % (42.0-52.0); Hemoglobin 14.3 g/dl (14.0-18.0); Imm Gran Abs Auto 0.17 X10*3/uL (0.00-0.03); Imm Gran Pct Auto 1.6 % (0.0-0.4); Lymphocytes Absolute Auto 0.7 X10*3/uL (1.2-4.9); Lymphocytes Percent Auto 7.1 % (20-40); Mean Corpuscular HGB Conc 31.2 g/dl (31.0-36.0); Mean Corpuscular Hemoglobin 26.8 pg (27.0-33.0); Mean Corpuscular Volume 85.8 fL (80.0-98.0); Mean Platelet Volume 10.6 fL (9.4-12.4); Monocytes Absolute Auto 0.4 X10*3/uL (0.1-1.2); Monocytes Percent Auto 3.8 % (2-11); Neutrophils Absolute Auto 8.9 x10*3/uL (2.0-8.3); Neutrophils Percent Auto 85.1 % (45-73); Platelet Count 245 X10*3/uL (160-400); Red Blood Count 5.34 X10*6/uL (4.60-5.80); Red Cell Distribution Width 15.7 % (11.0-16.0); White Blood Count 10.4 X10*3/uL (4.8-10.8)
[2022-12-25 17:51] LABS: Anion Gap 13 (12-20); Blood Urea Nitrogen 19 mg/dL (9-16); Calcium 9.8 mg/dL (8.4-10.2); Carbon Dioxide 24 mmol/L (22-29); Chloride 107 mmol/L (96-108); Estimated Glomerular Filt Rate 54; Glucose Random 85 mg/dL (60-115); Iron 54 mcg/dL (45-160); Percent Iron Saturation 21 % (15-50); Sodium 139 mmol/L (135-145); Total Iron Binding Capacity 258 mcg/dL (228-428); Unsaturated Iron Binding 204 ug/dL
== END 2022-12-25 13:56 | disposition home or self-care (01) ==
LOC: HO.US 13:55
PROVIDERS: Absent Provider Internal Medicine; PCP Internal Medicine; Visit Provider Surgery Vascular Surgery
DX: I12.9 Hypertensive chronic kidney disease with stage 1 through stage 4 chronic kidney disease, or unspecified chronic kidney disease (principal); N18.9 Chronic kidney disease, unspecified; I65.23 Occlusion and stenosis of bilateral carotid arteries; D64.9 Anemia, unspecified
CPT/HCPCS: 36415; 80048; 83540; 85025; 93880

== ENCOUNTER 2023-01-29 08:58 | Outpatient (AMB) | payer MEDICARE, SELFPAY ==
--- NOTE | 2023-01-29 08:59 | A.OFFVIS_ITS ---
Intake Vital Signs 01/29/23 09:00 01/29/23 09:10 Height 5 ft 8 in Weight 155 lb BMI 23.6 BP 114/60 112/68 Blood Pressure Location Lt brachial Rt femoral Position Sitting Sitting Intake Visit Reasons: 1 yr carotid US Intake Note: 1 yr follow up carotid US 12/25/22, pt has no complaints Accompanied by: Daughter Allergies No Known Allergies Allergy (Verified 01/29/23 09:07) HPI 1 yr carotid US HPI Details Very pleasant 87-year-old gentleman presents for evaluation regarding carotid disease. The entire workup began for evaluation of pulsatile tinnitus. In the interim he has had cerumen removed from the ear canal he appears to be doing somewhat better with that. Also of note he has undergone hernia repair with Dr. Mota in appears to be doing extremely well with that as well. Now presents for follow-up evaluation regarding his carotids with surveillance ultrasound. Of note he is asymptomatic in terms of his carotids and denies any visual loss, garbled speech, or loss of function in arm or leg. Also of note he is a nondiabetic and quit smoking 25 years ago. [facility] Medical History Bilateral carotid artery stenosis COPD (chronic obstructive pulmonary disease) Hematoma Hypertension Surgical History H/O colonoscopy H/O left inguinal hernia repair (10/24/22) History of cataract surgery Hx of prostate biopsy Status post left inguinal hernia repair Family History Sister Ovarian cancer Social History Alcohol intake: never Patient Tobacco Use Status: Former Tobacco user Quit Date: 2002 Tobacco use type: Cigarette Review of Systems Const All systems reviewed & are unremarkable except as noted in HPI and below Reports no additional complaints ENT Reports Normal hearing present Card Denies chest pain, Denies chest pain at rest, Denies chest pain with activity and Denies pedal edema Resp Denies cough GI Denies abdominal pain Musc Denies abnormal gait, Denies muscle cramps and Denies radiating pain into limb Skin/Breast Denies skin ulcer and Denies wounds Neuro Reports Normal hearing present and Denies abnormal gait Psych Reports no additional complaints Physical Exam Vital Signs: Last Vital Signs BP 112/68 01/29/23 09:10 BMI result Body Mass Index 23.6 Const General: cooperative, healthy appearing and comfortable Orientation/consciousness: oriented to person, oriented to place and oriented to time HEENT Head: Yes normal to inspection Neck Neck: Yes normal visual inspection Carotids: no bruits Chest Chest palpation & inspection: normal inspection of the chest Resp Effort & Inspection: normal respiratory effort and able to speak in complete sentences Auscultation: clear to auscultation bilaterally, no crackles, no rales, no rhonchi and no wheezes Cardio Rate: regular rate Rhythm: regular rhythm Heart sounds: S1 normal heart sound present and S2 normal heart sound present Bruits: no carotid bruits Peripheral pulses: Peripheral pulses 2+ throughout GI Inspection: Yes normal to inspection Skin Wounds: no wounds Hair: normal Neuro General: oriented to person, oriented to place and oriented to time Cranial nerves: Yes CN's II-XII intact bilaterally and Yes Normal hearing present Cognition (Neuro): normal cognition Motor exam (neuro): 5/5 motor strength present throughout Extrem Other: venous exam: No significant superficial varicosities or spider telangiectasias, minimal edema General: No clubbing, No cyanosis and No edema Psych Appearance: grossly normal Mental Status: mental status grossly normal Speech and movement: Normal speech and movement present Results Reviewed Results Reviewed: Noninvasive carotid testing dated 12/25/2022 demonstrates bilateral 0-49% stenosis. Assessment & Plan Assessment & Plan (1) Bilateral carotid artery stenosis: Code(s): I65.23 - Occlusion and stenosis of bilateral carotid arteries Plan: In short patient has been stable in terms of his carotids. His pulsatile tinnitus does seem to have resolved. At the current time would recommend routine conservative measures and risk factor modification. His carotids are at such a low level that would not recommend any additional surveillance testing. He did note some GI discomfort and irregular bowel movements. I did encourage him to have GI follow-up. Once again he will follow up with us on an as-needed basis. Thank you for allowing us to assist this patient's care. If there are any questions or concerns please do not hesitate to contact us Coding Level of Care Code Est Pt Level 4 (60341) Diagnoses Bilateral carotid artery stenosis I65.23
[2023-01-29 09:00] VITALS: BP 114/60; BMI 23.6
[2023-01-29 09:10] VITALS: BP 112/68
== END 2023-01-29 09:39 | disposition home or self-care (01) ==
PROVIDERS: PCP Internal Medicine; Visit Provider Surgery Vascular Surgery
DX: I65.23 Occlusion and stenosis of bilateral carotid arteries (principal)
CPT/HCPCS: 99213

== ENCOUNTER → 2023-01-29 08:58 | Outpatient (BNVA) | payer MEDICARE, SELFPAY | PROVIDERS: PCP Internal Medicine; Visit Provider Surgery Vascular Surgery | DX: I65.23 Occlusion and stenosis of bilateral carotid arteries (principal) | CPT/HCPCS: 99212 ==

== ENCOUNTER 2023-02-22 12:48 | Outpatient (REF) | payer MEDICARE, SELFPAY ==
[2023-02-22 17:15] LABS: Prostate Specific Antigen 5.98 ng/mL (<0.05-4.0)
== END 2023-02-22 12:49 | disposition home or self-care (01) ==
LOC: HO.HMGCLDS 12:48
PROVIDERS: PCP Internal Medicine; Visit Provider Urology
DX: R97.20 Elevated prostate specific antigen [PSA] (principal); Z12.5 Encounter for screening for malignant neoplasm of prostate
CPT/HCPCS: 36415; 84153

== ENCOUNTER 2023-03-11 14:20 | Outpatient (REF) | payer MEDICARE, SELFPAY ==
[2023-03-11 16:08] LABS: MANUAL DIFF FLAG NO
[2023-03-11 16:15] LABS: Basophils Absolute Auto 0.1 X10*3/uL (0.0-0.2); Basophils Percent Auto 1.1 % (0-2); Eosinophils Absolute Auto 0.1 X10*3/uL (0.0-0.4); Eosinophils Percent Auto 1.1 % (0-4); Hematocrit 45.9 % (42.0-52.0); Hemoglobin 14.6 g/dl (14.0-18.0); Imm Gran Abs Auto 0.16 X10*3/uL (0.00-0.03); Imm Gran Pct Auto 1.6 % (0.0-0.4); Lymphocytes Absolute Auto 0.8 X10*3/uL (1.2-4.9); Lymphocytes Percent Auto 8.2 % (20-40); Mean Corpuscular HGB Conc 31.8 g/dl (31.0-36.0); Mean Corpuscular Hemoglobin 26.5 pg (27.0-33.0); Mean Corpuscular Volume 83.5 fL (80.0-98.0); Mean Platelet Volume 11.4 fL (9.4-12.4); Monocytes Absolute Auto 0.4 X10*3/uL (0.1-1.2); Monocytes Percent Auto 3.8 % (2-11); NRBC Pct Auto 0.2 /100WBC (0.0-0.2); Neutrophils Absolute Auto 8.2 x10*3/uL (2.0-8.3); Neutrophils Percent Auto 84.2 % (45-73); Platelet Count 227 X10*3/uL (160-400); Red Cell Distribution Width 16.3 % (11.0-16.0); White Blood Count 9.7 X10*3/uL (4.8-10.8)
[2023-03-11 16:35] LABS: Alanine Aminotransferase 13 U/L (0-40); Alkaline Phosphatase 72 U/L (39-117); Anion Gap 12 (12-20); Aspartate Amino Transferase 13 U/L (5-37); Bilirubin Total 0.8 mg/dL (0.0-1.0); Blood Urea Nitrogen 16 mg/dL (9-16); Calcium 9.3 mg/dL (8.4-10.2); Carbon Dioxide 23 mmol/L (22-29); Chloride 109 mmol/L (96-108); Estimated Glomerular Filt Rate 59; Glucose Random 93 mg/dL (60-115); Potassium 5.1 mmol/L (3.3-5.1); Sodium 139 mmol/L (135-145)
== END 2023-03-11 14:21 | disposition home or self-care (01) ==
LOC: HO.HMGCLDS 14:20
PROVIDERS: PCP Internal Medicine; Visit Provider Internal Medicine
DX: N18.9 Chronic kidney disease, unspecified (principal); N40.0 Benign prostatic hyperplasia without lower urinary tract symptoms; I25.10 Atherosclerotic heart disease of native coronary artery without angina pectoris; R19.7 Diarrhea, unspecified; C18.9 Malignant neoplasm of colon, unspecified; D64.9 Anemia, unspecified
CPT/HCPCS: 36415; 80053; 82378; 85025

== ENCOUNTER 2023-12-16 07:00 | Outpatient (RCR) | payer MEDICARE, SELFPAY ==
--- NOTE | 2024-03-25 10:53 | MHC.PT.DC ---
[facility] [place] Office [place] Office [place] Office [address] Grant Simpson [address] [phone] F: [phone] F: [phone] F: [phone] F: [phone] Physical Therapy Discharge Report Diagnosis: abnormalities of gait and mobility Date of Surgery: Date of Evaluation: 10/15/23 Date of Discharge: 01/05/24 Treatments to Date: 8 Cancellations to Date: No Shows to Date: Discharge Status: Independent with HEP Discharge Summary: 12/16/23: pt maintaining functional level. we did discuss plan and decide to have 1 more appt before follow up with MD in 2 weeks. min fatigue noted today. 11/27/23: pt has min discomfort today. progressing well with skilled PT. we will plan 1 more visit then d/c to HEP. 11/18/23: pt progressing well with skilled PT. no adverse reactions. continuing to increase activity tolerance. continue to progress as tolerated. 11/06/23: pt has been feeling better overall and feeling improved safety and stability with PT. we will plan to continue 2 more visits. 11/04/23: pt continues to progress well. we will add balance intervention reaching outside base of support NV. 10/28/23: pt progressing well with skilled PT. adding strength and balance each visit. no adverse reactions. continue to progress as tolerated. 10/25/23: pt progressing well still. good activity tolerance and increased reps with strength ex. progress as tolerated. 10/21/23: pt progressing well. increased activity today with some fatigue. no new s/s. continues to progress as tolerated.\ Patient is a 88 year old R handed male who presents with s/s consistent with gait and mobility abnormality. He does not work and has been managing medical issues for the past year including hernia surgery and cancer. Patient past medical history includes cancer (current), COPD and HTN as well as hernia surgery. Current impairments include pain, balance, safety, independence, ROM, strength, activity tolerance and functional mobility. Functional limitations include decreased ability to walk, transfer, exercise, perform standing activity and yard work. Patient is motivated with good rehab potential. Skilled PT will address impairments and functional limitations in order to achieve goals. Electronically signed by: Jw Betancourt PT Please sign and return to therapist. Thank you for your referral.
== END 2024-03-25 10:54 | disposition home or self-care (01) ==
LOC: HO.PTCHIC 07:00
PROVIDERS: PCP Internal Medicine; Visit Provider Internal Medicine
DX: R26.89 Other abnormalities of gait and mobility (principal)
CPT/HCPCS: 97110; 97112; 97163

== ENCOUNTER 2024-01-01 11:27 | Outpatient (REF) | payer MEDICARE, SELFPAY ==
[2024-01-01 13:10] LABS: MANUAL DIFF FLAG NO
[2024-01-01 13:12] LABS: Basophils Absolute Auto 0.2 X10*3/uL (0.0-0.2); Basophils Percent Auto 1.6 % (0-2); Eosinophils Absolute Auto 0.1 X10*3/uL (0.0-0.4); Eosinophils Percent Auto 1.1 % (0-4); Hematocrit 41.9 % (42.0-52.0); Hemoglobin 13.6 g/dl (14.0-18.0); Imm Gran Abs Auto 0.19 X10*3/uL (0.00-0.03); Imm Gran Pct Auto 1.9 % (0.0-0.4); Lymphocytes Absolute Auto 0.7 X10*3/uL (1.2-4.9); Lymphocytes Percent Auto 7.1 % (20-40); Mean Corpuscular HGB Conc 32.5 g/dl (31.0-36.0); Mean Corpuscular Hemoglobin 28.3 pg (27.0-33.0); Mean Corpuscular Volume 87.1 fL (80.0-98.0); Mean Platelet Volume 9.7 fL (9.4-12.4); Monocytes Absolute Auto 0.5 X10*3/uL (0.1-1.2); Monocytes Percent Auto 4.6 % (2-11); Neutrophils Absolute Auto 8.3 x10*3/uL (2.0-8.3); Neutrophils Percent Auto 83.7 % (45-73); Platelet Count 162 X10*3/uL (160-400); Red Blood Count 4.81 X10*6/uL (4.60-5.80); Red Cell Distribution Width 17.1 % (11.0-16.0); White Blood Count 9.9 X10*3/uL (4.8-10.8)
[2024-01-01 13:31] LABS: Alanine Aminotransferase 9 U/L (0-40); Albumin Level 4.3 g/dL (3.5-5.0); Alkaline Phosphatase 87 U/L (39-117); Anion Gap 14 (12-20); Aspartate Amino Transferase 11 U/L (5-37); Bilirubin Total 0.6 mg/dL (0.0-1.0); Blood Urea Nitrogen 25 mg/dL (9-16); Calcium 9.3 mg/dL (8.4-10.2); Carbon Dioxide 21 mmol/L (22-29); Chloride 110 mmol/L (96-108); Estimated Glomerular Filt Rate 32; Glucose Random 99 mg/dL (60-115); Iron 63 mcg/dL (45-160); Percent Iron Saturation 28 % (15-50); Potassium 4.8 mmol/L (3.3-5.1); Sodium 140 mmol/L (135-145); Total Iron Binding Capacity 226 mcg/dL (228-428); Total Protein 7.2 g/dL (6.5-8.0); Unsaturated Iron Binding 163 ug/dL
== END 2024-01-01 11:28 | disposition home or self-care (01) ==
LOC: HO.10HDL 11:27
PROVIDERS: Visit Provider Internal Medicine
DX: D64.9 Anemia, unspecified (principal); N18.9 Chronic kidney disease, unspecified; N40.0 Benign prostatic hyperplasia without lower urinary tract symptoms
CPT/HCPCS: 36415; 80053; 83540; 85025